=== PATIENT | female | born 1990 | race Caucasian/White ===

== ENCOUNTER 2017-11-12 09:07 | Day surgery (SDC) | payer BC ==
[2017-11-12 09:42] LABS: #Eosinphils 0.1 thou/uL (0.0-0.7); #Lymphocytes 1.5 thou/uL (1.20-3.40); #Neutrophils 13.5 thou/uL (1.40-6.50); %Basophils 0.3 % (0.0-1.0); %Eosinophils 0.8 % (0.0-10.0); %Lymphocytes 9.1 % (21.0-51.0); %Monocytes 5.9 % (0.0-10.0); %Neutrophils 83.9 % (42.0-75.0); Hemoglobin 13.4 g/dL (12.0-16.0); Mean Corpuscular HGB CONC 35.7 g/dL (32.0-36.0); Mean Corpuscular Volume 89.7 fL (78.0-98.0); Mean Platelet Volume 7.2 fL (7.4-10.4); Platelet Count 310 thou/uL (130-400); Red Blood Cell (RBC) Count 4.18 mill/uL (4.20-5.40); White Blood Cell (WBC) Count 16.1 thou/uL (4.8-10.8)
[2017-11-12] MEDS ORDERED: Ketorolac Tromethamine 30 MG/ML VIAL ONE (10:02)
[2017-11-12 10:04] LABS: ALT (SGPT) 22 U/L (8-55); AST (SGOT) 19 U/L (5-34); Albumin 4.4 g/dL (3.5-5.0); Alkaline Phosphatase 47 U/L (40-150); Anion Gap 11 mmol/L (10-20); BUN (Urea Nitrogen) 18 mg/dL (7.0-18.7); Bilirubin, Total 0.9 mg/dL (0.2-1.2); Calc. Creatinine Clearance 0 mL/min (70-130); Carbon Dioxide 27 mmol/L (22-29); Chloride 104 mmol/L (98-107); Estimated GFR-MDRD 80; Globulin 2.5 g/dL (2.4-3.5); Glucose 118 mg/dL (70-105); Potassium 4.4 mmol/L (3.5-5.1); Protein, Total 6.9 g/dL (6.0-8.3); Sodium 138 mmol/L (136-145)
[2017-11-12 10:05] LABS: BHCG - Serum Negative (NEGATIVE); Pregs Control Background? CLEAR/WHITE (CLR/WHITE); Pregs Control Bar Appear? YES (CONTROL BAR)
[2017-11-12 10:07] LABS: CKMB 0.9 ng/mL (0-6.6); Troponin I Less than 0.010 ng/mL (< 0.028)
[2017-11-12] MEDS ORDERED: Ondansetron HCl/PF 4 MG/2 ML Vial ONE ×3 (11:55→14:22)
[2017-11-12 12:07] LABS: Hemoglobin 11.2 g/dL (12.0-16.0); Mean Corpuscular HGB CONC 35.2 g/dL (32.0-36.0); Mean Corpuscular Hemoglobin 31.6 pg (27.0-31.0); Mean Platelet Volume 7.2 fL (7.4-10.4); Platelet Count 290 thou/uL (130-400); Red Blood Cell (RBC) Count 3.55 mill/uL (4.20-5.40); White Blood Cell (WBC) Count 24.2 thou/uL (4.8-10.8)
[2017-11-12] MEDS ORDERED: ISOVUE-370 76%-LOCM 1 ML ONE (12:24)
[2017-11-12 12:30] LABS: Band 1 % (5-11); Lymphocytes 6 % (21-51); MDiff Complete? YES; Monocytes 2 % (0-10); Neutrophil 90 % (42-75); PLT Morphology Comment Appears Adequate; RBC Morphology Normal
--- NOTE | 2017-11-12 12:36 | RAD ---
PA CHEST UPRIGHT ABDOMEN: Date: 11/12/17 PROVIDED CLINICAL HISTORY: Abdominal pain. FINDINGS: Cardiac and mediastinal silhouette is within normal limits. Lungs appear clear. No pleural fluid or p neumothorax apparent. Upright view of the abdomen demonstrates a nonspecific bowel gas pattern. No ev idence for pneumoperitoneum. No radiographically apparent urinary tract calculi. The inferior pelvis is not imaged. IMPRESSION: No evidence for an acute process with limitations as above. POS: [facility]
[2017-11-12 12:44] LABS: Bilirubin Negative (Negative); Blood, Urine Trace (Negative); Clarity CLEAR (Clear); Glucose, Urine (Dipstick) Negative (Negative); Leukocyte Negative (Negative); Nitrite Negative (Negative); Protein, Urine (Dipstick) Negative (Neg-Trace); Urobilinogen 0.2 mg/dL (0.2-1.0)
[2017-11-12 12:47] LABS: Bacteria/HPF None Seen HPF (None Seen); Hyaline Casts/LPF 7-10 HYALINE CAST LPF (0-3 Hyaline); Pathc Cast-AUWi Flag 2.18 (0-2.49); RBC/HPF 0-3 HPF (0-3); Squamous Epithelial 0-3 HPF (0-3); WBC/HPF 0-3 HPF (0-3)
[2017-11-12 12:49] LABS: Pregnancy Test - Urine (BHCG) Negative (Negative); Pregu Control Background? CLEAR/WHITE (CLR/WHITE); Pregu Control Bar Appear? YES (CONTROL BAR); Specific Gravity Greater than 1.060 (1.002-1.036); Specific Gravity, Urine Greater than 1.060 (1.002-1.036)
[2017-11-12] MEDS ORDERED: PROPOFOL 200 MG/20 ML VIAL ONE (13:06)
[2017-11-12] MEDS ORDERED: Lidocaine 1% PF 5 ML VIAL ONE (13:06)
[2017-11-12] MEDS ORDERED: Glycopyrrolate 0.2 MG/ML 5 ML SYRINGE ONE (13:06)
[2017-11-12] MEDS ORDERED: PHENYLEPHRINE-NS 100 MCG/ML 10 ML SYRINGE ONE (13:06)
[2017-11-12] MEDS ORDERED: Dexamethasone 20 MG/5 ML VIAL ONE (13:06)
--- NOTE | 2017-11-12 13:14 | CT ---
ABDOMEN AND PELVIC CT SCAN WITH IV CONTRAST: Date: 11/12/17 HISTORY: 27-year-old female with history of syncope and collapse, cramps in abdomen. FINDINGS: Visualized lungs are clear. There is a large amount of free intraperitoneal fluid within the abdomen and pelvis, with attenuation ranging from 20 Hounsfield units superiorly to approximately 50 Hounsfie ld units in the pelvis, indicative of complicated fluid, including hemorrhage. The liver, gallbladder , pancreas, and spleen appear unremarkable. No renal calculus or obstruction or evidence for renal in jury. Adrenal glands are unremarkable. There is a normal appearing appendix. No bowel obstruction. In the pelvis, there is a large, amorphous mass which appears to be somewhat circumferentially in par t around the uterus, and involving the adnexal regions bilaterally. This mass measures approximately 7.0 x 9.0 cm and has an appearance strongly suggestive of hematoma. There is an IUD in place within the uterus. IMPRESSION: Very large amount of free intraperitoneal fluid, probably blood. Poorly circumscribed 7.0 x 9.0 cm di ameter mass in the pelvis, which in part encircles the uterus and involves left and right adnexal reg ions, worrisome for a large hematoma. IUD appears to be within uterine fundus region. The exact sourc e of the presumed pelvic hemorrhage is difficult to definitively ascertain. Certainly ruptured ectopi c would be a strong consideration, although Dr. Read said that the test was ne gative. Another consideration would be that of some type of uterine injury or uterine laceration, or adnexal injury or adnexal laceration, that would account for this hemorrhage. Findings discussed with Dr. Read at 1125 hours. He indicated that he would contact gynecology and/ or general surgery for further evaluation. CODE CR. POS: [facility]
[2017-11-12] MEDS ORDERED: HYDROmorphone 0.5 MG/0.5 ML SYRINGE SLOW IVP SCH (13:15)
[2017-11-12] MEDS ORDERED: HYDROmorphone 0.5 MG/0.5 ML SYRINGE ONE ×2 (13:29→15:32)
[2017-11-12] MEDS ORDERED: Promethazine HCl 25 MG/ML VIAL ONE (14:43)
[2017-11-12 14:51] LABS: #Lymphocytes 0.7 thou/uL (1.20-3.40); #Monocytes 0.5 thou/uL (0.11-0.59); #Neutrophils 23.6 thou/uL (1.40-6.50); %Basophils 0.1 % (0.0-1.0); %Lymphocytes 2.9 % (21.0-51.0); Hemoglobin 10.5 g/dL (12.0-16.0); Mean Corpuscular HGB CONC 34.9 g/dL (32.0-36.0); Mean Corpuscular Hemoglobin 31.6 pg (27.0-31.0); Mean Corpuscular Volume 90.5 fL (78.0-98.0); Mean Platelet Volume 7.6 fL (7.4-10.4); Platelet Count 268 thou/uL (130-400); Red Blood Cell (RBC) Count 3.32 mill/uL (4.20-5.40); White Blood Cell (WBC) Count 24.8 thou/uL (4.8-10.8)
--- NOTE | 2017-11-12 15:26 | ULT ---
TRANSABDOMINAL AND TRANSVAGINAL PELVIC ULTRASOUND: Date: 11/12/17 PROVIDED CLINICAL HISTORY: Pain. FINDINGS: Prominent mixed echogenicity material is noted about the uterine fundus. Free fluid is also seen. End ometrial canal demonstrates appropriately positioned IUD. The myometrium appears normal. The right an d left ovaries are not seen. IMPRESSION: Hemoperitoneum with blood clot in the pelvic cul-de-sac is redemonstrated, seen to better advantage o n CT. POS: [facility]
[2017-11-12] MEDS ORDERED: Fentanyl 100 MCG/2 ML VIAL ONE (15:32)
[2017-11-12] MEDS ORDERED: Midazolam HCl 2 mg/2 ml Vial ONE ×2 (15:32→18:48)
--- NOTE | 2017-11-12 15:38 | CON ---
DATE OF CONSULTATION: 11/12/2017 GENERAL SURGERY CONSULTATION CHIEF COMPLAINT: Abdominal pain. HISTORY OF PRESENT ILLNESS: This is a 27-year-old female who about 11:00 p.m. started developing wha t she described as menstrual cramps. Then over this course of evening, it seemed to move up her abdo men to her xiphoid and shoulder. At 8:00 a.m., she voided, still having cramps and then had a syncop al episode at 9:00 a.m. and was brought in. She denies any nausea or vomiting. The right side seems more painful than the left. PAST MEDICAL HISTORY: Sinus problems. She has had some premelanoma skin biopsies and she had a cerv ical scraping for HPV. PAST SURGICAL HISTORY: She has had dental implants, third molar extraction and an IUD for 2 years. MEDICATIONS: She is on a sinus medication, vitamin D, melatonin and Aleve. SOCIAL HISTORY: She is , homemaker, occasional alcohol, no tobacco. PHYSICAL EXAMINATION: VITAL SIGNS: Temperature afebrile, pulse 94, blood pressure 112/60. She looks pale. HEENT: Otherwise unremarkable. GENERAL: She is awake. GCS 15. LUNGS: Clear. HEART: Regular rate and rhythm. ABDOMEN: She has diffuse peritoneal signs. Very tender belly. LABORATORY DATA AND IMAGING DATA: Her white count is 24,000, hemoglobin and hematocrit 11 and 32, pl atelet count 290, her hemoglobin and hematocrit has dropped in the last 2 hours from 13 and 37 to 11 and 32. Electrolytes are fine. HCG negative. Liver function tests normal. CT scan shows clot in t he pelvis, but liquified blood throughout the abdomen. ASSESSMENT: Pelvic bleed, likely gynecologic. PLAN: Recommend ELECTRICAL TECH evaluation and treatment. I will be available as needed.
[2017-11-12] MEDS ORDERED: Sodium Chloride 0.9% 20 ML ONE (15:42)
[2017-11-12] MEDS ORDERED: CEFAZOLIN/Water 2 GM/20 ML SYRINGE ONE (16:05)
[2017-11-12 17:36] LABS: Hemoglobin 9.8 g/dL (12.0-16.0)
[2017-11-12 17:43] LABS: INR-International Normal Ratio 1.1; Prothrombin Time 14.3 SEC (12.0-14.7)
[2017-11-12] MEDS ORDERED: Bupivacaine HCl 0.25%/Epi 0.0005/PF 10 ML VIAL FS ONE (19:21)
[2017-11-12 20:35] LABS: Hemoglobin 9.6 g/dL (12.0-16.0)
--- NOTE | 2017-11-13 09:02 | HP ---
DATE OF SERVICE: 11/12/2017 CHIEF COMPLAINT: Abdominal pain and syncope. HISTORY OF PRESENT ILLNESS: This is a 27-year-old nulligravid female who presented to the emergency department after having a syncopal episode. She reports that she had abdominal pain this morning and got up to start walking, felt lightheaded and blacked out. She reports that she fell and hit her head on a window and broke the window. She denies any vaginal bleeding and has an IUD for contraception. She has some nausea, but no vomiting. No changes in bowel habits. She has not eaten since yesterday and had a sip of coffee today. The patient reports diffuse abdominal pain with radiation to her right shoulder. REVIEW OF SYSTEMS: Negative for head, eyes, ears, nose, throat, cardiovascular , respiratory, GI, , neuro, psych, musculoskeletal, skin or constitutional symptoms other than mentioned above. CREATIVE PERFUMER HISTORY: IUD for contraception for the last 2 years. She has had a history of an abnormal Pap smear treated with a LEEP. She sees Dr. Landers for her CREATIVE PERFUMER care. PAST MEDICAL HISTORY: None. PAST SURGICAL HISTORY: Tooth implants and premalignant lesions of her skin removed. MEDICATIONS: 1. Nasal spray. 2. Vitamin D. ALLERGIES: No known drug allergies. SOCIAL HISTORY: Negative for tobacco, alcohol, or drug abuse. She is . FAMILY HISTORY: Significant for breast cancer in her aunt, but otherwise unremarkable. PHYSICAL EXAMINATION: VITAL SIGNS: Afebrile with vital signs stable. GENERAL: Awake, alert, in no acute distress, but appears uncomfortable. ABDOMEN: Voluntary guarding with diffuse tenderness to palpation. Positive rebound. IMAGIN. A CT scan was performed which revealed a very large amount of free intraperitoneal fluid, probably blood. Poorly circumscribed 7 x 9 cm diameter mass in the pelvis which encircles the uterus involved left and right adnexal regions worrisome for a large hematoma. 2. pelvic ultrasound, hemoperitoneum with blood clot in the cul-de-sac. Ovaries not visualized. WBC 24.8 up from 16.1, hemoglobin 10.5 down from 13.4, hematocrit 30 down from 37.4, platelets 268,000, neutrophils 95%. Chemistry negative test. Otherwise, unremarkable. Urine unremarkable. ASSESSMENT AND PLAN: A 27-year-old nulligravid female with hemoperitoneum. She is not ruling out an ectopic ; however, the adnexa were not visualized, thus the cause could be a ruptured ovarian cyst. I counseled the patient on expectant management versus proceeding to diagnostic laparoscopy. I feel that laparoscopy is the best option as she appears to continually be bleeding and her symptoms will improve with evacuation of hemoperitoneum. Risks, benefits, and alternatives were discussed and the patient wishes to proceed with surgery. Consents were signed. VIRGINAI
--- NOTE | 2017-11-13 09:02 | OP ---
DATE OF SERVICE: 11/12/2017 PREOPERATIVE DIAGNOSES: Hemoperitoneum of unknown etiology POSTPROCEDURE DIAGNOSES: 1. Hemoperitoneum. 2. Hemorrhagic corpus luteum cyst. PROCEDURE PERFORMED: Diagnostic laparoscopy with evacuation of hemoperitoneum and cauterization of bleeding ovarian cyst. SURGEON: Kathryn Arce M.D. CABLE TOOL DRILLER: Radha Floyd M.D. ANESTHESIA: General endotracheal. COMPLICATIONS: None. ESTIMATED BLOOD LOSS: 10 mL with approximately 900 mL of hemoperitoneum. INDICATIONS: Patient presented to the emergency department with a syncopal episode and abdominal pain. She was found to have a large amount of free fluid in her abdomen, presumed to be blood with an unknown source. Given her age and location of the blood, it was presumed to be gynecologic. Her hemoglobin continued to drop; however, her vitals remained stable. The patient elected to proceed with diagnostic laparoscopy for management. PROCEDURE FINDINGS: Large amount of hemoperitoneum was present, normal uterus, tubes, and ovaries. The left ovary was noted to have a bleeding, hemorrhagic corpus luteum cyst. The appendix and liver edge appeared normal. PROCEDURE IN DETAIL: Patient was taken to the operating room where general anesthesia was obtained without difficulty. She was prepared and draped in normal sterile fashion in the dorsal lithotomy position with Yellofin leg holders. Mcdowell catheter was placed. A speculum was placed in the vagina and a Vupen uterine manipulator was used to manipulate the uterus. There, speculum was removed and attention was turned to the abdomen. A 5-mm skin incision was made in the infraumbilical fold and a Veress needle was placed intra- abdominally. The abdomen was insufflated with CO2 gas. The 5-mm port was advanced under direct visualization using a Visiport. The above findings were noted. A 5-mm port was placed in the right lower quadrant and an 11-mm port was placed in the left lower quadrant. The hemoperitoneum was suctioned with a suction fence installer foreman. The pelvis was examined and the left ovary was noted to have a corpus luteum cyst that was continuing to bleed. This spot was cauterized with EndoShears and hemostasis was noted. The abdomen was copiously irrigated and suctioned again with good hemostasis noted. The 11-mm port was removed and the fascia was reapproximated using a Stone-Bandra device. The other ports were removed. After the abdomen was desufflated, the skin was closed with 4-0 Monocryl. The incisions were injected with 0.25% Marcaine with epinephrine. The manipulator was removed from the vagina. Mcdowell catheter was removed. The patient tolerated the procedure well. Sponge, lap, and needle counts were correct x2. The patient was taken to recovery room in stable condition. [place]
== END 2017-11-12 21:40 | disposition home or self-care (01) ==
LOC: ERS 09:07 → SDC/OP 19:00
PROVIDERS: ATTEND Obstetrics & Gynecology
PROC: 0UB14ZZ Excision of Left Ovary, Percutaneous Endoscopic Approach (ICD-10-PCS; principal; 2017-11-12)
DX: N83.12 Corpus luteum cyst of left ovary (principal); K66.1 Hemoperitoneum; R55 Syncope and collapse; Z79.899 Other long term (current) drug therapy
CPT/HCPCS: 36415; 74019; 74177; 76856; 80053; 81003; 81015; 81025; 82553; 83690; 84484; 84702; 84703; 85025; 85610; 85730; 86850; 86900; 86901; 93005; 96361; 96365; 96375; 96376; A4216; J1100; J1170; J1885; J2001; J2250; J2270; J2405; J2550; J2704; J3010